=== PATIENT | female | born 1975 | race Two or more races ===

== ENCOUNTER → 2025-05-14 | Outpatient (CLI) | payer MEDICAID, SELFPAY ==
--- NOTE | 2025-05-14 10:00 | XR_ITS ---
Examination: Liver ultrasound elastography Date and time: May 14, 2025, 10:13 AM INDICATIONS: Epigastric pain beginning one year ago FINDINGS: Liver 15.3 cm with fatty infiltration Normal hepatopedal portal venous flow Tissue stiffness average 1.5 m/s, mild to moderate liver fibrosis IMPRESSION: [id number] liver fibrosis
== END | disposition home or self-care (01) ==
LOC: CDIM 09:54
PROVIDERS: PCP Physician Assistant; Referring Provider Physician Assistant; Visit Provider Physician Assistant
DX: K74.00 Hepatic fibrosis, unspecified (principal)
CPT/HCPCS: 76981

== ENCOUNTER 2025-10-08 19:24 | Emergency (ER) | payer MEDICAID, SELFPAY ==
[2025-10-08 20:01] VITALS: BP 124/79; PULSE 98; RESP 18; TEMP 36.9; O2SAT 97
--- NOTE | 2025-10-08 20:08 | XR_ITS ---
Examination: CT abdomen and pelvis without contrast. Coronal 3-D reconstructions. Sagittal 2-D reconstructions. Date and time of exam: October 08, 2025, 10:20 p.m. INDICATIONS: Onset right sided flank pain today CTDI: vol (mGy): 9.89 DLP: (mGycm): 545 Technique: Axial images of the abdomen have been obtained, 3 mm slice thickness Intravenous contrast material has not been administered. Low dose protocols were performed. One or more of the following dose reduction techniques were used; automated exposure control, adjustment of the mA and/or KV according to patient size, use of iterative reconstruction technique. Findings: No focal liver or splenic lesion No gallstones No pancreatic or adrenal mass No renal or ureteral calculi, no hydronephrosis Aorta normal size No pericecal inflammatory change, normal appendix No bowel obstruction or diverticulitis No pelvic mass No bladder mass or bladder calculi Absent uterus Intact osseous structures IMPRESSION: No renal or ureteral calculi, no hydronephrosis No bladder mass or bladder calculi
--- NOTE | 2025-10-08 20:09 | PD.EDRME ---
Rapid Medical Screening Exam RME Arrival date/time: 10/08/25 19:24 49F with no significant PMH presents to ED with 2 days of R flank pain that radiates forward, as well as some N/V. Patient recently finished unspecified ABX for UTI. Chief Complaint: Abdominal Pain Vital signs: Vital Signs Temperature 98.4 F 10/08/25 20:01 Pulse Rate 98 10/08/25 20:01 Respiratory Rate 18 10/08/25 20:01 Blood Pressure 124/79 10/08/25 20:01 Pulse Oximetry (%) 97 10/08/25 20:01 Oxygen Delivery Method Room Air 10/08/25 20:01 Exam: R CVA and RUQ tenderness. Clinical Impression: UTI/pyelo vs kidney stone vs biliary disease vs pancreatitis vs ab pain
[2025-10-08] MEDS: KETOROLAC INJ 60 MG/2 ML VIAL IM (20:29)
[2025-10-08] MEDS: ONDANSETRON ODT 4 MG TABRAP PO (20:30)
[2025-10-08 20:53] LABS: Basophils # (Auto) 0.1 Thou/mm3 (0.0-0.2); Basophils % (Auto) 1 % (0-2.5); Eosinophils # (Auto) 0.2 Thou/mm3 (0.0-0.5); Eosinophils % (Auto) 2 % (0-10); Hematocrit 39.8 % (36.0-46.0); Hemoglobin 13.4 g/dL (12.0-16.0); Immature Granulocytes Auto 0.02 Thou/mm3 (0.00-0.00); Lymphocytes # (Auto) 3.3 Thou/mm3 (1.0-4.8); Lymphocytes % (Auto) 41 % (10-50); Mean Corpuscular HGB Conc 33.7 g/dl (31.0-37.0); Mean Corpuscular Hemoglobin 30.0 pg (25.0-35.0); Mean Corpuscular Volume 89 fL (80-100); Monocytes # (Auto) 0.5 Thou/mm3 (0.0-0.8); Monocytes % (Auto) 6 % (0-12); Neutrophils # (Auto) 4.1 Thou/mm3 (1.8-7.7); Neutrophils % (Auto) 50 % (37-80); Nucleated Red Blood Cell # 0.00 Thou/mm3 (0.00-0.00); Nucleated Red Blood Cell % 0 /100 WBC (0); Platelet Count 213 Thou/mm3 (140-440); RDW Standard Deviation 41.1 fL (36.4-46.3); Red Blood Count 4.47 Miln/mm3 (4.00-5.20); White Blood Count 8.1 Thou/mm3 (3.6-11.0)
[2025-10-08 21:13] LABS: Alanine Aminotransferase 23 U/L (10-49); Albumin, Serum 4.5 gm/dL (3.5-5.0); Albumin/Globulin Ratio 1.7 (1.2-2.2); Alkaline Phosphatase 87 U/L (46-116); Anion Gap 8 (7-16); Aspartate Amino Transferase 25 U/L (0-34); BUN/Creatinine Ratio 15 Ratio (12-20); Bilirubin,Total 0.3 mg/dL (0.3-1.2); Blood Urea Nitrogen 12 mg/dL (9-23); Calcium 9.3 mg/dL (8.3-10.6); Calcium (Corrected) 9.3 mg/dL (8.5-10.1); Carbon Dioxide 25.6 mMol/L (20.0-31.0); Chloride 108 mMol/L (98-107); Creatinine (Component) 0.8 mg/dL (0.6-1.3); Globulin 2.7 gm/dL (2.3-3.5); Glucose 160 mg/dL (74-106); Lipase 30 U/L (12-53); Osmolality,Calculated 285 (275-295); Potassium 3.6 mMol/L (3.4-5.1); Sodium 142 mMol/L (136-145); Total Protein 7.2 gm/dL (5.7-8.2); eGFR > 60 See Note
--- NOTE | 2025-10-08 21:44 | PD.EDABDPN ---
ED Abdominal Pain RME/HPI General Chief Complaint: Abdominal Pain Stated complaint: RIGHT UPPER ABD PAIN RADIATING TO BACK Time seen by provider: 10/08/25 20:41 Arrival date/time: 10/08/25 19:24 RME / HPI RME / HPI narrative: 10/08/25 19:24 CC: Abdominal Pain Patient is a 49-year-old female with a limited past medical history who presented to the emergency room via private vehicle with a chief complaint of right-sided abdominal pain at right upper quadrant and right flank pain. Patient stated the pain began yesterday in the evening says pain is 8 out of 10 despite taking Tylenol at home. 10 days previously patient had urinary tract infection that was treated by their PCP. Patient denied dysuria or hematuria. Patient denied fevers at home. Positive for chills. Negative history of diarrhea or hematochezia/melena. Denied history of kidney stones. Denied constipation. 1 previous abdominal surgery/hysterectomy secondary to adenomyosis. Per patient 5lbs weight loss that has been unintentional over the past 2 months, about 2 meals per day, no change in meal frequency. Exam: R CVA and RUQ tenderness. Impression: UTI/pyelo vs kidney stone vs biliary disease vs pancreatitis vs ab pain Related Data Previous Rx's ?Medication ?Instructions ?Recorded simethicone 125 mg capsule (Gas 125 mg PO QDAY PRN abdominal 10/09/25 Relief (simethicone)) distention 2 weeks #14 caps Allergies Allergy/AdvReac Type Severity Reaction Status Date / Time No Known Allergies Allergy Verified 10/08/25 19:25 Review of Systems Review of Systems Narrative Review of Systems: General appearance: NO weight change, NO fatigue, NO weakness, NO fever, NO chills, NO night sweats, No cough Skin: NO rash, NO itching, NO sores, NO moles HEENT: NO Trauma, NO nausea, NO vomiting, NO visual changes, NO blurry vision, NO double vision, NO tinnitus, NO vertigo, NO ear discharge, NO rhinorrhea, NO stuffiness, NO sneezing, NO allergy, NO epistaxis. NO Hoarseness, NO sore throat, NO swollen neck. Cardiac: NO Palpitations, NO dyspnea on exertion, NO orthopnea, NO paroxysmal nocturnal dyspnea, NO edema Respiratory: NO Shortness of Breath, NO Wheezing, NO Cough, NO Sputum, NO hemoptysis GI:Yes appetite-Today, Yes nausea, NO vomiting, NO dysphagia, NO changes in bowel frequency, NO stool color, NO diarrhea, NO constipation, NO hemetemesis, NO hemorrhoids, NO melena, NO hematechezia, yes abdominal pain-right upper quadrant pain, NO jaundice Renal: NO frequency, NO hesitancy, NO urgency, NO hematuria, NO nocturia, NO incontinence, flank pain, right, UTI previously MSK: NO muscle weakness, NO gout, NO arthritis, NO muscle stiffness Neuro: NO headaches, NO tremors, NO weakness, NO paralysis, NO seizures, NO loss of consciousness, NO numbness. Hem: NO anemia, NO easy bruising/bleeding, NO petechiae, NO purpura Endo: NO heat/cold intolerance, NO excessive sweating, NO polyuria, NO polydipsia, NO polyphagia, NO thyroid problems, NO diabetes Pysch: NO mood, NO anxiety, NO depression ED Exam Narrative Physical exam: General Appearance: Alert & Oriented X3, well-nourished female who is lying in bed in mild discomfort secondary to right sided abdominal pain HEENT: Skull symmetrical and atraumatic. Conjunctivae pink and moist. Pupils equal, round, reactive to light and accommodation (PERRL). External ear without lesion or discharge. Straight, nares patient, mucosa pink, no discharge. Cardio: Normal Rate and Rhythm with S1 and S2 heart sounds. No murmurs or extra heart sounds auscultated. No bruits on carotid auscultation. No peripheral edema or cyanosis. Lungs: Symmetric with good expansion. Chest and back non-tender. Breath sounds vesicular without crackles, wheezing or rhonchi Abdomen: right sided tenderness, Yes Gilbert, Non-distended, Normal Reactive Bowel Sounds Neuro: Alert, cooperative, oriented to person, place, and time. Speech clear. CN grossly intact. Upper motor strength 5/5 and Lower motor strength 5/5. Sensation intact. Course Course Course Narrative: CBC CMP Lipase US gallbladder and Ct abdomen non con Quality Measures none Orders Category Date Time Status CT abdomen pelvis wo con Stat Exams 10/08/25 20:08 Completed US gall bladder Stat Exams 10/09/25 00:27 Taken CBC Stat Lab 10/08/25 20:47 Completed CMP [Comprehensive Metabolic Panel] Stat Lab 10/08/25 20:47 Completed Drug Screen,Urine Stat Lab 10/08/25 22:38 Completed HCG Qualitative,Urine Stat Lab 10/08/25 22:38 Completed Lipase Stat Lab 10/08/25 20:47 Completed Urinalysis, C/S if Indicated Stat Lab 10/08/25 22:38 Completed Urine Culture Stat Lab 10/08/25 22:38 Received Ketorolac Inj [Toradol Inj] Med 10/08/25 20:12 Discontinued 60 mg IM X1 ONE Ondansetron Odt [Zofran Odt] Med 10/08/25 20:12 Discontinued 4 mg PO X1 ONE Vital Signs Vital signs: Vital Signs Temperature 98.4 F 10/08/25 20:01 Pulse Rate 98 10/08/25 20:01 Respiratory Rate 18 10/08/25 20:01 Blood Pressure 124/79 10/08/25 20:01 Pulse Oximetry (%) 97 10/08/25 20:01 Oxygen Delivery Method Room Air 10/08/25 20:01 Abdominal Pain MDM Patient data External records reviewed:: [facility] previous records Clinical information provided by:: patient Social determinants that could affect healthcare access:: none Patient has the following chronic illnesses:: None, denied chronic hx How is presenting disease/condition affected by chronic disease/condition?: no chronic disease Evaluation data The following diagnostics were reviewed and interpreted by me:: lab results, radiology exam(s) and EKG tracing(s) Lab and/or radiology exams considered but not ordered:: None Interpretation Summary: Patient is a 49-year-old female with an unremarkable past medical history who presented to the emergency room with a chief complaint of right upper quadrant plain and flank pain on the right side. No leukocytosis noted on CBC. No anemia. CMP electrolytes within normal limits. Total T. bili within normal limits. AST and ALT within normal limits lipase negative UA negative. U tox negative. Gallbladder ultrasound negative for any biliary sludge or stones. CT abdomen and pelvis negative for any kidney stones diverticulitis or small bowel obstruction. Abdominal pain likely secondary to gas. Medications / Prescriptions Medications or Prescriptions considered but not ordered:: None Medication administrations:: Medication Administration History Discontinued Medications Ketorolac Tromethamine (Ketorolac Inj 60 Mg/2 Ml Vial) 60 mg IM X1 ONE Stop: 10/08/25 20:13 Last Admin: 10/08/25 20:29 Dose: 60 mg Documented By: BD Ondansetron HCl (Ondansetron Odt 4 Mg Tabrap) 4 mg PO X1 ONE; Protocol Stop: 10/08/25 20:13 Last Admin: 10/08/25 20:30 Dose: 4 mg Documented By: ORRO same as above Consultations Consultation(s) initiated? (list below): No Diagnosis Differential diagnosis abdominal pain: abdominal pain, acute appendicitis, calculus of kidney, constipation and other (flatus) Most likely diagnosis given after review of the tests above:: Patient is a 49-year-old female with an unremarkable past medical history who presented to the emergency room with a chief complaint of right upper quadrant plain and flank pain on the right side. No leukocytosis noted on CBC. No anemia. CMP electrolytes within normal limits. Total T. bili within normal limits. AST and ALT within normal limits lipase negative UA negative. U tox negative. Gallbladder ultrasound negative for any biliary sludge or stones. CT abdomen and pelvis negative for any kidney stones diverticulitis or small bowel obstruction. Abdominal pain likely secondary to gas/flatus. Admission Indicated Admission indicated?: not indicated Admission Request Was there a request for admission?: No Disposition Plan Disposition Plan: Discharge Discharge Attestation Discharge Attestation: The patient and all family members were given an opportunity to ask questions and understood the discharge instructions. Discharge instructions specifically effects, indications for sooner follow up or return to the emergency department, and the expected course of current diagnosis. Patient condition: Stable Discharge Plan Plan Patient Disposition: HOME (Self Care) Patient condition on transfer: Stable Health Concerns: Instructions: -Abdominal pain likely secondary to gas. US gallbladder negative. CT abdomen/pelvis negative for any kidney stones. -Your pain likely secondary to gas --Please follow up with your primary care provider within one week of discharge -If your symptoms worsen,please seek immediate medical attention and return to your nearest emergency room -If you do not have a primary care provider, you may follow up at the [facility] at [address], [place] [address], Prescriptions/Referrals Prescriptions/Med Rec: New simethicone [Gas Relief (simethicone)] 125 mg capsule 125 mg PO QDAY PRN (Reason: abdominal distention) 14 Days Qty: 14 0RF Problem List Clinical Impression: Abdominal pain, Flatus Patient/Caregiver Discharge Instructions Print Language: [place] Stand Alone Forms: Rosario Award Info., Patient Portal Info Letter
[2025-10-08 21:47] VITALS: BP 128/62; PULSE 69; RESP 16; TEMP 36.4; O2SAT 97
[2025-10-08 22:47] LABS: Collection Type, Urine Clean Catch
[2025-10-08 22:59] LABS: Bacteria,Urine Rare; Bilirubin,Urine Negative (Negative); Blood,Urine Negative (Negative); Clarity,Urine Clear (Clear/Hazy); Color,Urine Lt-Yellow (Lt Yel-Yel); Glucose, Urine Negative (Negative); Ketones,Urine Negative (Negative); Leukocyte Esterase,Urine Positive (Negative); Nitrite,Urine Negative (Negative); PH,Urine 6.5 (5.0-7.0); Protein,Urine Negative (Neg - Trace); RBC,Urine 1 /hpf (0-3); Specific Gravity,Urine 1.012 (1.001-1.035); Squamous Epithelial Cell,Urine 1 /hpf (0-5); Urobilinogen,Urine Negative mg/dL (0.0-1.0); WBC,Urine 21 /hpf (0-5)
[2025-10-08 23:00] LABS: Culture Indicated,Urine Yes; HCG Qualitative,Urine Negative
[2025-10-08 23:10] LABS: Amphetamine/Methamp Scrn,U Negative (Negative); Barbiturate Screen,Urine Negative (Negative); Benzodiazepines Screen,Urine Negative (Negative); Benzoylecgonine Screen, Ur Negative (Negative); Fentanyl Screen,Urine Negative (Negative); Opiate Screen,Urine Negative (Negative); THC Screen,Urine Negative (Negative)
[2025-10-08 23:57] VITALS: BP 149/71; PULSE 48; RESP 17; TEMP 36.4; O2SAT 97
--- NOTE | 2025-10-09 00:27 | XR_ITS ---
Examination: Abdomen sonogram, Limited Date and time of exam: October 08, 2025, 11:37 p.m. INDICATIONS: Right upper abdominal pain today Technique: Real-time [place] scale transabdominal sonographic images of the upper abdomen obtained. Findings: Negative for gallstones Normal gallbladder wall 0.21 cm Common bile duct 0.53 cm Pancreas obscured by bowel gas Liver 14.33 cm no liver lesions Normal hepatopetal portal venous flow Patent IVC IMPRESSION: Normal gallbladder Normal common bile duct Liver normal size no focal liver lesions
[2025-10-09 01:02] VITALS: BP 143/70; PULSE 55; RESP 16; TEMP 36.6; O2SAT 96
--- NOTE | 2025-10-09 03:22 | PRELIM_ITS ---
Right upper quadrant abdominal ultrasound. October 08, 2025 at 2339 hours Clinical history: Right upper quadrant pain. Technique: Grayscale and color flow images of the right upper quadrant are provided. Hepatic and portal veins were also imaged with color flow images. Comparison: No prior study is available for comparison. Findings: The evaluation is limited due to bowel gas artifacts. The liver measures 14.3 cm in length and demonstrates diffuse increased echogenicity, consistent with fatty infiltration. No intrahepatic biliary ductal dilatation. The main portal vein is patent and demonstrates hepatopetal flow. No gallbladder calculus, wall thickening or pericholecystic fluid is demonstrated. The common bile duct is normal in caliber at 5 mm. The pancreas is obscured by bowel gas artifact. The inferior vena cava is within normal limits. Impression: 1. No sonographic evidence of cholelithiasis, acute cholecystitis or biliary obstruction. 2. Diffuse fatty infiltration of the liver. 3. Other findings as described above. Suggest clinical correlation and follow up accordingly. Report Electronically Signed By: Garry Nolan 10/09/2025 3:22:14 AM [EST]
== END 2025-10-09 01:04 | disposition home or self-care (01) ==
LOC: SERX 10-09 01:40
PROVIDERS: Physician Assistant; Emergency Provider Emergency Medicine; PCP Physician Assistant
DX: R10.11 Right upper quadrant pain (principal); R14.3 Flatulence; Z87.440 Personal history of urinary (tract) infections
CPT/HCPCS: 36415; 74176; 76705; 80053; 80307; 81001; 81025; 83690; 85025; 87086; 96372; 99284; J1885; Q0162